=== PATIENT | female | born 1975 | race Caucasian/White ===

== ENCOUNTER → 2021-01-06 | Outpatient (CLI) | payer BC | LOC: MRI 08:30 | DX: M54.6 Pain in thoracic spine (principal); M51.26 Other intervertebral disc displacement, lumbar region; M47.816 Spondylosis without myelopathy or radiculopathy, lumbar region | CPT/HCPCS: 72158; A9577 ==

== ENCOUNTER → 2022-03-30 | Outpatient (CLI) | payer BC ==
[~2022-03-30] VITALS: Ht 160 cm; Wt 85.7 kg
== END ==
LOC: OPSV 12:00
DX: D50.9 Iron deficiency anemia, unspecified (principal)
CPT/HCPCS: 96365; J1756